=== PATIENT | female | born 1970 ===

== ENCOUNTER 2024-07-30 09:45 | Inpatient (IN) | payer OTHER ==
[~2024-07-30] VITALS: Ht 154.9 cm; Wt 62.6 kg
[2024-07-30] MEDS ORDERED: COZAAR50 MG PO (11:17)
[2024-07-30 11:18] VITALS: BP 139/65; BP 152/73
[2024-07-30] MEDS ORDERED: TAPAZOLE5 MG PO (11:18)
[2024-07-30 11:19] LABS: HEMATOCRIT 37.4 % (36.0-45.00); HEMOGLOBIN 12.4 g/dL (12.0-15.00); MEAN CELL VOLUME 78.5 fL (80.00-100.00); MEAN CORPUSCULAR HEMOGLOBIN 25.9 pg (27.00-32.0); PLATELET COUNT 324 K/uL (150-450); RED BLOOD COUNT 4.77 M/uL (4.00-6.00)
[2024-07-30 11:41] LABS: INR 1.02; PARTIAL THROMBOPLASTIN TIME 25.8 SECONDS (22.0-34.0); PROTHROMBIN TIME 11.1 SECONDS (9.0-11.5)
[2024-07-30 11:45] LABS: PH,URINE 7.5 (5.0-8.0); URINE APPEARANCE Clear; URINE BILIRRUBIN Negative (NEGATIVE); URINE BLOOD Negative; URINE COLOR Yellow; URINE GLUCOSE Negative (NEGATIVE); URINE KETONE Trace (NEGATIVE); URINE LEUKOCYTE Negative; URINE NITRATE Negative; URINE PROTEIN Negative (NEGATIVE)
[2024-07-30 11:46] LABS: ALBUMIN 3.5 gm/dL (3.4-5.0); BILIRUBIN TOTAL 0.29 mg/dL (0.3-1.2); CALCIUM 9.4 mg/dL (8.5-10.1); CREATININE SERUM 0.64 mg/dL (0.55-1.02); GFR 96.7; GLOBULINA 3.9 G/DL (2.4-3.5); POTASSIUM 4.41 mEq/L (3.5-5.1); TOTAL PROTEIN 7.4 gm/dL (6.4-8.2)
[2024-07-30 11:49] LABS: URINE BACTERIA 11.3 uL (0.0-1933)
[2024-08-02] MEDS ORDERED: CEFAZOLIN SODIUM 1,000 MG VIAL IV ONE (08:45)
[2024-08-02] MEDS ORDERED: DEXAMETHASONE SODIUM PHOSPHATE 4 MG/ML VIAL IV ONE (08:45)
[2024-08-02] MEDS ORDERED: ONDANSETRON HCL 2 MG/ML VIAL IV PRN (09:00)
[2024-08-02] MEDS ORDERED: Calcium Carbonate 1 TAB TABLET PO SCH (09:00)
[2024-08-02] MEDS ORDERED: ENALAPRILAT DIHYDRATE 1.25 MG/ML VIAL IV PRN (09:00)
[2024-08-02] MEDS ORDERED: TRAMADOL HCL 50 MG TABLET PO SCH (09:02)
[2024-08-02] MEDS ORDERED: LOSARTAN POTASSIUM 50 MG TABLET PO SCH (09:03)
[2024-08-02] MEDS ORDERED: MORPHINE SULFATE 4 MG/ML VIAL IV ONE ×3 (10:00→11:00)
[2024-08-02 12:24] VITALS: BP 139/65; BP 152/73; O2SAT 97
[2024-08-02 16:47] VITALS: BP 127/71; O2SAT 98
[2024-08-02 16:48] VITALS: BP 127/71; O2SAT 98
[2024-08-02] MEDS ORDERED: CYCLOBENZAPRINE HCL 5 MG TABLET PO SCH (17:00)
[2024-08-02] MEDS ORDERED: ACETAMINOPHEN 500 MG GEL..CAP PO SCH (17:00)
[2024-08-02] MEDS ORDERED: PANTOPRAZOLE SODIUM 40 MG/VIAL VIAL IV PUSH SCH (21:00)
[2024-08-02 23:10] VITALS: BP 93/55; O2SAT 95
[2024-08-03 08:18] VITALS: BP 112/63; O2SAT 95
[2024-08-03] MEDS ORDERED: LEVOTHYROXINE SODIUM 100 MCG TABLET PO SCH (09:00)
[2024-08-03 16:20] VITALS: BP 103/60; O2SAT 98
== END 2024-08-03 16:36 | disposition home or self-care (01) | DRG 627 ==
LOC: O/R 08-02 05:24 → SURG 08-02 05:24 → SURH 08-02 07:00 → SURG 08-02 11:12
PROVIDERS: ADMIT Surgery; ATTEND Surgery
PROC: 0GTK0ZZ Resection of Thyroid Gland, Open Approach (ICD-10-PCS; principal; 2024-08-02 07:00)
DX: E05.00 Thyrotoxicosis with diffuse goiter without thyrotoxic crisis or storm (principal); Z20.822 Contact with and (suspected) exposure to COVID-19